=== PATIENT | male | born 1950 | race Two or more races ===

== ENCOUNTER → 2021-12-19 | Day surgery (SDC) | payer MEDICARE, MEDICAID ==
[~2021-12-19] VITALS: Ht 170.2 cm; Wt 74.8 kg
[~2021-12-19] MED LIST: ASPI-1497 PO; BUPIVACAINE HCL/PF 0.5% (5MG/ML) 30ML ONE; CEFAZOLIN SODIUM 1000MG/VIAL ONE; GLYCOPYRROLATE 0.2 MG/ML 2ML VIAL ONE; HYDROMORPHONE HCL/PF 2MG/ML CPJ ONE; KETOROLAC 30MG/ML VIAL ONE; LACTATED RINGERS 1,000 ML IV SCH; LOVA10TA54 PO; ONDANSETRON HCL 4MG/2ML INJ ONE; SKIN ADHESIVE 0.7 GM EA TOP ONE; TAMS-11 PO
== END | disposition home or self-care (01) ==
LOC: OR 07:12
PROVIDERS: ATTEND Surgery
DX: K40.90 Unilateral inguinal hernia, without obstruction or gangrene, not specified as recurrent (principal); E78.5 Hyperlipidemia, unspecified; N40.0 Benign prostatic hyperplasia without lower urinary tract symptoms; Z79.899 Other long term (current) drug therapy; Z98.890 Other specified postprocedural states; Z20.822 Contact with and (suspected) exposure to COVID-19
CPT/HCPCS: 49505; 87426; C1781; C9803; J0690; J1170; J1885; J2405; J3490; J7120